=== PATIENT | male | born 1935 | race Caucasian/White ===

== ENCOUNTER 2021-03-02 22:35 | Inpatient (IN) | payer OTHER ==
[2021-03-02 23:23] LABS: ARTERIAL BLD GAS O2 SATURATION 39.1 % (95-98); ARTERIAL BLOOD GAS BASE EXCESS -2.4 mmol/L (-2-2); ARTERIAL BLOOD GAS pH 7.362 (7.350-7.450)
[2021-03-02 23:25] LABS: ALLENS TEST POSITIVE
[2021-03-02 23:28] LABS: ARTERIAL BLOOD GAS PO2 23.4 mmHg (80-100)
[2021-03-03] MEDS ORDERED: AZITHROMYCIN IVPB 500 MG in DEXTROSE 5%-WATER - 250 ML IVPB ONE (00:10)
[2021-03-03] MEDS ORDERED: CEFTRIAXONE 1 GM in DEXTROSE 5%-WATER - 100 ML IVPB ONE (00:10)
[2021-03-03 00:20] LABS: BASO % 0.1 % (0-2.0); EOS % 0.7 % (0-4.5); HEMATOCRIT 27.9 % (35.4-49); HEMOGLOBIN 9.1 GM/dL (11.7-16.9); LYMPH % 15.1 % (8-40); MCHC 32.6 g/dl (32.0-35.9); MEAN CELL VOLUME 98.1 fl (80-96); MEAN PLT VOLUME 8.9 fl (7.5-11.1); MONO % 9.3 % (3.8-10.2); NEUT % 74.8 % (42.8-82.8); PLATELET COUNT 267 10^3/uL (134-434); RBC 2.84 M/mm3 (4.00-5.60); RDW 13.7 % (11.9-15.9); WHITE BLOOD COUNT 12.8 K/mm3 (4.0-10.0)
[2021-03-03] MEDS ORDERED: AZITHROMYCIN IVPB 500 MG/250 ML BAG IVPB ONE (00:23)
[2021-03-03] MEDS ORDERED: CEFTRIAXONE 1 GM/50 ML BAG ONE (00:23)
[2021-03-03 00:26] LABS: ALBUMIN 2.2 g/dl (3.4-5.0); CALCIUM 7.8 mg/dL (8.5-10.1)
[2021-03-03 00:27] LABS: BLOOD UREA NITROGEN 54.6 mg/dL (7-18); MAGNESIUM 2.5 mg/dL (1.8-2.4)
[2021-03-03 00:29] LABS: CREATININE 1.4 mg/dL (0.55-1.3); PROTHROMBIN TIME (PATIENT) 11.7 SEC (9.7-13.0)
[2021-03-03 00:30] LABS: PHOSPHOROUS 3.5 mg/dL (2.5-4.9)
[2021-03-03 00:31] LABS: BILIRUBIN,TOTAL 0.4 mg/dL (0.2-1); TOT PROT 5.4 g/dl (6.4-8.2)
[2021-03-03 00:32] LABS: ACTIVATED PTT 24.2 SECONDS (25.2-36.5)
[2021-03-03 00:35] LABS: N-TERMINAL BNP 765.1 pg/ml (5-450)
[2021-03-03 00:39] LABS: URINE APPEARANCE CLEAR; URINE BILIRUBIN NEGATIVE (NEGATIVE); URINE COLOR YELLOW; URINE GLUCOSE (UA) NEGATIVE (NEGATIVE); URINE KETONE NEGATIVE (NEGATIVE); URINE LEUK ESTERASE NEGATIVE (NEGATIVE); URINE NITRITE NEGATIVE (NEGATIVE); URINE PROTEIN NEGATIVE (NEGATIVE)
[2021-03-03] MEDS ORDERED: HALOPERIDOL LACTATE 5 MG/ML ONE (01:40)
[2021-03-03] MEDS ORDERED: HALOPERIDOL DECANOATE 500 MG/5ML MDV IM ONE (01:40)
[2021-03-03] MEDS ORDERED: MIDAZOLAM HCL 2 MG/2 ML SINGLE DOSE VIAL IVPUSH ONE (01:44)
[2021-03-03] MEDS ORDERED: MIDAZOLAM HCL 2 MG/2 ML SINGLE DOSE VIAL ONE (01:46)
[2021-03-03] MEDS ORDERED: ALBUTEROL SO4 2.5/IPRATROPIUM 0.5 INH SOL 3 ML VIAL.NEB. NEB PRN (03:35)
[2021-03-03] MEDS ORDERED: PIPERACILLIN/TAZOB 3.375 GM 3.375 GM/50 ML BAG IVPB SCH (10:00)
[2021-03-03] MEDS ORDERED: PIPERACILLIN/TAZOB 3.375 GM 3.375 GM in DEXTROSE 5%-WATER - 50 ML IVPB SCH (10:00)
[2021-03-03 12:06] LABS: BASO % 1.1 % (0-2.0); EOS % 2.6 % (0-4.5); HEMATOCRIT 25.4 % (35.4-49); HEMOGLOBIN 8.6 GM/dL (11.7-16.9); LYMPH % 16.8 % (8-40); MCH 32.2 pg (25.7-33.7); MCHC 33.7 g/dl (32.0-35.9); MEAN CELL VOLUME 95.5 fl (80-96); MEAN PLT VOLUME 8.2 fl (7.5-11.1); MONO % 8.6 % (3.8-10.2); NEUT % 70.9 % (42.8-82.8); PLATELET COUNT 254 10^3/uL (134-434); RBC 2.66 M/mm3 (4.00-5.60); RDW 13.8 % (11.9-15.9); WHITE BLOOD COUNT 9.4 K/mm3 (4.0-10.0)
[2021-03-03 12:27] LABS: CALCIUM 7.9 mg/dL (8.5-10.1)
[2021-03-03 12:28] LABS: BLOOD UREA NITROGEN 43.6 mg/dL (7-18)
[2021-03-03 12:30] LABS: CREATININE 1.1 mg/dL (0.55-1.3)
[2021-03-03 12:32] LABS: BILIRUBIN,TOTAL 0.3 mg/dL (0.2-1); TOT PROT 4.8 g/dl (6.4-8.2)
[2021-03-03] MEDS ORDERED: PIPERACILLIN/TAZOB 3.375 GM 3.375 GM/50 ML BAG IVPB ONE (19:22)
[2021-03-03] MEDS: PIPERACILLIN/TAZOB 3.375 GM 3.375 GM in DEXTROSE 5%-WATER - 50 ML IVPB SCH (19:24)
[2021-03-04] MEDS: PIPERACILLIN/TAZOB 3.375 GM 3.375 GM in DEXTROSE 5%-WATER - 50 ML IVPB SCH ×3 (02:40→18:25)
[2021-03-04] MEDS ORDERED: PIPERACILLIN/TAZOB 3.375 GM 3.375 GM/50 ML BAG IVPB ONE (02:44)
[2021-03-04 09:51] LABS: BASO % 0.4 % (0-2.0); EOS % 1.5 % (0-4.5); HEMATOCRIT 28.2 % (35.4-49); HEMOGLOBIN 9.4 GM/dL (11.7-16.9); LYMPH % 11.9 % (8-40); MCH 32.8 pg (25.7-33.7); MCHC 33.2 g/dl (32.0-35.9); MEAN CELL VOLUME 98.8 fl (80-96); MONO % 6.4 % (3.8-10.2); NEUT % 79.8 % (42.8-82.8); PLATELET COUNT 306 10^3/uL (134-434); RBC 2.85 M/mm3 (4.00-5.60); RDW 13.7 % (11.9-15.9); WHITE BLOOD COUNT 10.8 K/mm3 (4.0-10.0)
[2021-03-04] MEDS ORDERED: PIPERACILLIN/TAZOBACTAM 3.375 GM VIAL IVPB ONE ×3 (09:57→17:30)
[2021-03-04] MEDS ORDERED: DEXTROSE 5%-WATER - 50 ML IVPB ONE ×3 (09:57→17:30)
[2021-03-04 10:07] LABS: BLOOD UREA NITROGEN 39.2 mg/dL (7-18)
[2021-03-04] MEDS: D5-1/2NS+10 MEQ KCL - 10 MEQ/1,000 ML INFUS.BAG IV SCH (10:07)
[2021-03-04 10:12] LABS: BILIRUBIN,TOTAL 0.5 mg/dL (0.2-1)
[2021-03-05] MEDS ORDERED: PIPERACILLIN/TAZOBACTAM 3.375 GM VIAL IVPB ONE ×3 (00:52→16:45)
[2021-03-05] MEDS ORDERED: DEXTROSE 5%-WATER - 50 ML IVPB ONE ×3 (00:53→16:45)
[2021-03-05] MEDS: PIPERACILLIN/TAZOB 3.375 GM 3.375 GM in DEXTROSE 5%-WATER - 50 ML IVPB SCH ×3 (01:52→17:22)
[2021-03-05] MEDS: D5-1/2NS+10 MEQ KCL - 10 MEQ/1,000 ML INFUS.BAG IV SCH ×3 (04:33→20:48)
[2021-03-05 09:02] LABS: BASO % 0.3 % (0-2.0); EOS % 2.2 % (0-4.5); HEMOGLOBIN 9.2 GM/dL (11.7-16.9); LYMPH % 15.5 % (8-40); MCH 33.1 pg (25.7-33.7); MEAN CELL VOLUME 97.2 fl (80-96); MEAN PLT VOLUME 8.4 fl (7.5-11.1); MONO % 8.1 % (3.8-10.2); NEUT % 73.9 % (42.8-82.8); PLATELET COUNT 281 10^3/uL (134-434); RBC 2.78 M/mm3 (4.00-5.60); RDW 13.7 % (11.9-15.9)
[2021-03-05 09:29] LABS: BLOOD UREA NITROGEN 26.1 mg/dL (7-18); CALCIUM 7.8 mg/dL (8.5-10.1); MAGNESIUM 2.4 mg/dL (1.8-2.4)
[2021-03-05 09:33] LABS: CREATININE 1.2 mg/dL (0.55-1.3); PHOSPHOROUS 2.5 mg/dL (2.5-4.9)
[2021-03-05] MEDS ORDERED: VANCOMYCIN 1 GRAM (PRE-DOCKED) 1,000 MG/250 ML BAG IVPB ONE (10:30)
[2021-03-06] MEDS ORDERED: DEXTROSE 5%-WATER - 50 ML IVPB ONE ×3 (00:59→17:33)
[2021-03-06] MEDS ORDERED: PIPERACILLIN/TAZOBACTAM 3.375 GM VIAL IVPB ONE ×3 (00:59→17:33)
[2021-03-06] MEDS: PIPERACILLIN/TAZOB 3.375 GM 3.375 GM in DEXTROSE 5%-WATER - 50 ML IVPB SCH ×3 (01:33→17:35)
[2021-03-06 10:45] LABS: BLOOD UREA NITROGEN 17.6 mg/dL (7-18); CALCIUM 7.9 mg/dL (8.5-10.1)
[2021-03-06 10:48] LABS: CREATININE 1.1 mg/dL (0.55-1.3)
[2021-03-06] MEDS: D5-1/2NS+10 MEQ KCL - 10 MEQ/1,000 ML INFUS.BAG IV SCH (15:03)
[2021-03-07] MEDS ORDERED: DEXTROSE 5%-WATER - 50 ML IVPB ONE ×2 (01:20→09:45)
[2021-03-07] MEDS ORDERED: PIPERACILLIN/TAZOBACTAM 3.375 GM VIAL IVPB ONE ×2 (01:20→09:45)
[2021-03-07] MEDS: PIPERACILLIN/TAZOB 3.375 GM 3.375 GM in DEXTROSE 5%-WATER - 50 ML IVPB SCH ×2 (02:11→10:09)
[2021-03-07] MEDS: D5-1/2NS+10 MEQ KCL - 10 MEQ/1,000 ML INFUS.BAG IV SCH (11:00)
[2021-03-07] MEDS: FUROSEMIDE 20 MG TABLET (FP) PO SCH (15:57)
[2021-03-07] MEDS: AMOX TR/POT CLAV 500MG/125MG TABLETS (FP) PO SCH (16:51)
[2021-03-08] MEDS: FUROSEMIDE 20 MG TABLET (FP) PO SCH (08:59)
[2021-03-08] MEDS: AMOX TR/POT CLAV 500MG/125MG TABLETS (FP) PO SCH ×2 (08:59→17:49)
[2021-03-08 10:01] LABS: CALCIUM 8.1 mg/dL (8.5-10.1)
[2021-03-08 10:02] LABS: BLOOD UREA NITROGEN 20.8 mg/dL (7-18)
[2021-03-08 10:05] LABS: CREATININE 1.1 mg/dL (0.55-1.3)
[2021-03-08 20:42] VITALS: BMI 16.6
[2021-03-09 09:35] LABS: BASO % 0.3 % (0-2.0); HEMATOCRIT 27.3 % (35.4-49); HEMOGLOBIN 9.1 GM/dL (11.7-16.9); LYMPH % 13.9 % (8-40); MCH 32.5 pg (25.7-33.7); MCHC 33.3 g/dl (32.0-35.9); MEAN CELL VOLUME 97.6 fl (80-96); MEAN PLT VOLUME 8.9 fl (7.5-11.1); MONO % 8.8 % (3.8-10.2); PLATELET COUNT 298 10^3/uL (134-434); RBC 2.79 M/mm3 (4.00-5.60); WHITE BLOOD COUNT 11.8 K/mm3 (4.0-10.0)
[2021-03-09] MEDS ORDERED: MULTIVITAMINS (DAILY MVI) TABLET (FP) PO SCH (10:00)
[2021-03-09 10:07] LABS: CALCIUM 7.6 mg/dL (8.5-10.1)
[2021-03-09 10:08] LABS: ALBUMIN 1.7 g/dl (3.4-5.0); BLOOD UREA NITROGEN 24.6 mg/dL (7-18)
[2021-03-09 10:11] LABS: CREATININE 1.1 mg/dL (0.55-1.3)
[2021-03-09 10:12] LABS: BILIRUBIN,TOTAL 0.4 mg/dL (0.2-1)
[2021-03-09 10:13] LABS: TOT PROT 4.8 g/dl (6.4-8.2)
[2021-03-09] MEDS: FUROSEMIDE 20 MG TABLET (FP) PO SCH (10:34)
[2021-03-09] MEDS: MULTIVITAMINS (DAILY MVI) TABLET (FP) PO SCH (10:34)
[2021-03-09] MEDS: AMOX TR/POT CLAV 500MG/125MG TABLETS (FP) PO SCH ×2 (10:34→17:43)
[2021-03-10] MEDS: AMOX TR/POT CLAV 500MG/125MG TABLETS (FP) PO SCH (09:00)
[2021-03-10] MEDS: MULTIVITAMINS (DAILY MVI) TABLET (FP) PO SCH (09:07)
[2021-03-10 14:06] LABS: BASO % 0.4 % (0-2.0); EOS % 0.9 % (0-4.5); HEMATOCRIT 30.6 % (35.4-49); HEMOGLOBIN 10.3 GM/dL (11.7-16.9); LYMPH % 13.3 % (8-40); MCH 32.9 pg (25.7-33.7); MCHC 33.7 g/dl (32.0-35.9); MEAN CELL VOLUME 97.6 fl (80-96); MEAN PLT VOLUME 8.6 fl (7.5-11.1); MONO % 7.6 % (3.8-10.2); NEUT % 77.8 % (42.8-82.8); PLATELET COUNT 337 10^3/uL (134-434); RBC 3.14 M/mm3 (4.00-5.60); RDW 13.8 % (11.9-15.9); WHITE BLOOD COUNT 9.9 K/mm3 (4.0-10.0)
[2021-03-10 14:33] LABS: ALBUMIN 1.9 g/dl (3.4-5.0); BLOOD UREA NITROGEN 30.4 mg/dL (7-18)
[2021-03-10 14:36] LABS: CREATININE 1.1 mg/dL (0.55-1.3)
[2021-03-10 14:38] LABS: TOT PROT 5.3 g/dl (6.4-8.2)
[2021-03-10 14:44] LABS: BILIRUBIN,TOTAL 0.3 mg/dL (0.2-1)
[2021-03-11 13:03] LABS: BASO % 0.6 % (0-2.0); EOS % 1.5 % (0-4.5); HEMATOCRIT 29.3 % (35.4-49); HEMOGLOBIN 9.9 GM/dL (11.7-16.9); LYMPH % 12.6 % (8-40); MCH 33.3 pg (25.7-33.7); MCHC 33.7 g/dl (32.0-35.9); MEAN CELL VOLUME 98.8 fl (80-96); MEAN PLT VOLUME 8.4 fl (7.5-11.1); MONO % 7.4 % (3.8-10.2); NEUT % 77.9 % (42.8-82.8); PLATELET COUNT 335 10^3/uL (134-434); RBC 2.97 M/mm3 (4.00-5.60); WHITE BLOOD COUNT 7.9 K/mm3 (4.0-10.0)
[2021-03-11] MEDS: MULTIVITAMINS (DAILY MVI) TABLET (FP) PO SCH (15:38)
[2021-03-12 15:41] VITALS: BP 120/60; PULSE 53; TEMP 97.4
[2021-03-12] MEDS: MULTIVITAMINS (DAILY MVI) TABLET (FP) PO SCH (16:29)
== END 2021-03-12 16:49 | DRG 871 ==
LOC: JER 22:35 → JERBED 23:46 → J5S 03-04 04:43
PROVIDERS: ADMIT Internal Medicine; ATTEND Family Medicine
DX: A41.9 Sepsis, unspecified organism (principal); J96.01 Acute respiratory failure with hypoxia; J18.9 Pneumonia, unspecified organism; E43 Unspecified severe protein-calorie malnutrition; J44.1 Chronic obstructive pulmonary disease with (acute) exacerbation; N17.9 Acute kidney failure, unspecified; J44.0 Chronic obstructive pulmonary disease with (acute) lower respiratory infection; N39.0 Urinary tract infection, site not specified; R64 Cachexia; Z68.1 Body mass index [BMI] 19.9 or less, adult; E83.51 Hypocalcemia; D72.829 Elevated white blood cell count, unspecified; F03.90 Unspecified dementia, unspecified severity, without behavioral disturbance, psychotic disturbance, mood disturbance, and anxiety; N28.1 Cyst of kidney, acquired
CPT/HCPCS: 36415; 36600; 70450-TC; 71045-TC-FY; 76775-TC; 76856-TC; 80048; 80053; 81003; 82140; 82272; 82550; 82553; 82728; 82803; 82962; 83540; 83550; 83605; 83735; 83880; 84100; 84484; 85025; 85610; 85730; 86850; 86900; 86901; 87040; 87076; 87086; 87186; 87899; 93005; 93010; 97116-GP; 97162-GP; 99285-25; C9803; U0003; U0005

== ENCOUNTER 2021-05-29 18:36 | Inpatient (IN) | payer OTHER ==
[2021-05-29 19:23] VITALS: BMI 14.2
[2021-05-29 22:36] LABS: EOS % 0.2 % (0-4.5); HEMATOCRIT 31.1 % (35.4-49); HEMOGLOBIN 9.6 GM/dL (11.7-16.9); LYMPH % 6.4 % (8-40); MCH 28.5 pg (25.7-33.7); MCHC 30.7 g/dl (32.0-35.9); MEAN CELL VOLUME 92.9 fl (80-96); MEAN PLT VOLUME 9.4 fl (7.5-11.1); MONO % 3.3 % (3.8-10.2); NEUT % 90.1 % (42.8-82.8); PLATELET COUNT 268 10^3/uL (134-434); RBC 3.35 M/mm3 (4.00-5.60); RDW 17.7 % (11.9-15.9); WHITE BLOOD COUNT 26.1 K/mm3 (4.0-10.0)
[2021-05-29 23:00] LABS: CHLORIDE 140 mmol/L (98-107)
[2021-05-29 23:02] LABS: ALBUMIN 1.9 g/dl (3.4-5.0); CALCIUM 8.1 mg/dL (8.5-10.1); CO2 26 mmol/L (21-32); GLUCOSE,RANDOM 90 mg/dL (74-106); MAGNESIUM 2.8 mg/dL (1.8-2.4)
[2021-05-29 23:05] LABS: CREATININE 1.9 mg/dL (0.55-1.3); SGOT/AST 91 U/L (15-37); SGPT/ALT 33 U/L (13-61)
[2021-05-29 23:07] LABS: BILIRUBIN,TOTAL 0.4 mg/dL (0.2-1)
[2021-05-29 23:08] LABS: ALK PHOS 123 U/L (45-117)
[2021-05-29 23:09] LABS: EPI CELLS 31 /uL (0-25.1); HYALINE CASTS 3 /uL (0-3.1); URINE APPEARANCE TURBID; URINE BACTERIA 1198 /uL (0-1359); URINE BILIRUBIN NEGATIVE (NEGATIVE); URINE COLOR YELLOW; URINE GLUCOSE (UA) NEGATIVE (NEGATIVE); URINE KETONE NEGATIVE (NEGATIVE); URINE LEUK ESTERASE 3+ (NEGATIVE); URINE NITRITE NEGATIVE (NEGATIVE); URINE PROTEIN 1+ (NEGATIVE); URINE RBC 186 /uL (0-23.9); URINE UROBILINOGEN 0.2 mg/dL (0.2-1.0); URINE WBC 1899 /uL (0-25.8)
[2021-05-29 23:10] LABS: N-TERMINAL BNP 720.7 pg/ml (5-450)
[2021-05-29] MEDS ORDERED: VANCOMYCIN 1 GM in D5W (PRE-DOCKED) 1,000 MG/250 ML IVPB ONE (23:18)
[2021-05-29] MEDS ORDERED: PIPERACILLIN/TAZOB 2.25 GM 2.25 GM in DEXTROSE 5%-WATER - 50 ML IVPB ONE (23:21)
[2021-05-29] MEDS ORDERED: VANCOMYCIN 1 GRAM (PRE-DOCKED) 1,000 MG/250 ML BAG IVPB ONE (23:27)
[2021-05-29] MEDS ORDERED: PIPERACILLIN/TAZOB 2.25 GM 2.25 GM/50 ML BAG IVPB ONE (23:27)
[2021-05-29 23:39] LABS: ANION GAP 3 MMOL/L (8-16); SODIUM 169 mmol/L (136-145)
[2021-05-29 23:46] LABS: INR 1.12 (0.83-1.09); PROTHROMBIN TIME (PATIENT) 12.9 SEC (9.7-13.0)
[2021-05-29] MEDS ORDERED: SODIUM CHLORIDE 1,000 ML IV STA (23:54)
[2021-05-30 00:09] LABS: ANISOCYTOSIS 1+; MACROCYTOSIS 0; OVALOCYTE 1+; PLATELET ESTIMATE NORMAL
[2021-05-30] MEDS ORDERED: ACETAMINOPHEN 1000 MG/100 ML BAG IVPB PRN (02:51)
[2021-05-30] MEDS ORDERED: ALBUTEROL SO4 2.5/IPRATROPIUM 0.5 INH SOL 3 ML VIAL.NEB. NEB PRN (06:43)
[2021-05-30 07:23] LABS: HEMATOCRIT 30.8 % (35.4-49); HEMOGLOBIN 9.1 GM/dL (11.7-16.9); MCH 28.4 pg (25.7-33.7); MCHC 29.5 g/dl (32.0-35.9); MEAN CELL VOLUME 96.2 fl (80-96); MEAN PLT VOLUME 9.8 fl (7.5-11.1); PLATELET COUNT 264 10^3/uL (134-434); RBC 3.21 M/mm3 (4.00-5.60); RDW 17.7 % (11.9-15.9)
[2021-05-30 07:32] LABS: CHLORIDE 141 mmol/L (98-107)
[2021-05-30 07:35] LABS: BLOOD UREA NITROGEN 68.1 mg/dL (7-18)
[2021-05-30 07:37] LABS: CO2 25 mmol/L (21-32)
[2021-05-30 07:38] LABS: ALBUMIN 1.8 g/dl (3.4-5.0); GLUCOSE,RANDOM 89 mg/dL (74-106); TRIGLYCERIDES 103 mg/dL (0-150)
[2021-05-30 07:39] LABS: CALCIUM 8.1 mg/dL (8.5-10.1)
[2021-05-30 07:40] LABS: SGOT/AST 86 U/L (15-37); SGPT/ALT 32 U/L (13-61)
[2021-05-30 07:41] LABS: CHOLESTEROL 87 mg/dL (50-200); CREATININE 1.8 mg/dL (0.55-1.3)
[2021-05-30 07:42] LABS: LDL CHOLESTEROL (ONLY SJRH) 42 mg/dL (5-100)
[2021-05-30 07:43] LABS: HDL CHOLESTEROL 28 mg/dL (40-60)
[2021-05-30 07:44] LABS: BILIRUBIN,TOTAL 0.4 mg/dL (0.2-1); TOT PROT 5.7 g/dl (6.4-8.2)
[2021-05-30 07:46] LABS: ALK PHOS 113 U/L (45-117)
[2021-05-30 07:51] LABS: ANION GAP 3 MMOL/L (8-16); SODIUM 169 mmol/L (136-145)
[2021-05-30] MEDS ORDERED: PIPERACILLIN/TAZOBACTAM 2.25 GM VIAL IVPB ONE ×2 (07:58→17:08)
[2021-05-30] MEDS ORDERED: DEXTROSE 5%-WATER - 50 ML IVPB ONE ×2 (07:58→17:08)
[2021-05-30] MEDS ORDERED: VANCOMYCIN 500 MG VIAL (RESTRICTED TO ID ONLY) ONE (07:59)
[2021-05-30] MEDS ORDERED: DEXTROSE 5%-WATER 100 ML IVPB ONE (07:59)
[2021-05-30] MEDS ORDERED: VANCOMYCIN 500 MG in DEXTROSE 5%-WATER 100 ML IVPB SCH (08:00)
[2021-05-30 09:00] LABS: ANISOCYTOSIS 1+; MACROCYTOSIS 1+; OVALOCYTE 1+; PLATELET ESTIMATE NORMAL; TARGET CELLS 1+
[2021-05-30] MEDS ORDERED: PIPERACILLIN/TAZOB 2.25 GM 2.25 GM in DEXTROSE 5%-WATER - 50 ML IVPB SCH (09:00)
[2021-05-30] MEDS: HEPARIN NA (PORCINE) 5,000 UNITS/ML 1ML VIAL SQ SCH ×2 (09:12→21:25)
[2021-05-30] MEDS: DEXTROSE 5%-WATER - 1,000 ML IV SCH (13:00)
[2021-05-30] MEDS: PIPERACILLIN/TAZOB 2.25 GM 2.25 GM in DEXTROSE 5%-WATER - 50 ML IVPB SCH (17:18)
[2021-05-31] MEDS ORDERED: VANCOMYCIN 500 MG in DEXTROSE 5%-WATER - 100 ML IVPB SCH (01:00)
[2021-05-31] MEDS ORDERED: PIPERACILLIN/TAZOBACTAM 2.25 GM VIAL IVPB ONE ×3 (01:01→16:23)
[2021-05-31] MEDS ORDERED: DEXTROSE 5%-WATER - 50 ML IVPB ONE ×3 (01:01→16:23)
[2021-05-31] MEDS: PIPERACILLIN/TAZOB 2.25 GM 2.25 GM in DEXTROSE 5%-WATER - 50 ML IVPB SCH ×3 (01:33→17:01)
[2021-05-31] MEDS: DEXTROSE 5%-WATER - 1,000 ML IV SCH ×3 (01:33→14:37)
[2021-05-31 08:50] LABS: HEMATOCRIT 29.7 % (35.4-49); HEMOGLOBIN 8.8 GM/dL (11.7-16.9); MCH 28.2 pg (25.7-33.7); MCHC 29.8 g/dl (32.0-35.9); MEAN CELL VOLUME 94.9 fl (80-96); MEAN PLT VOLUME 9.8 fl (7.5-11.1); PLATELET COUNT 227 10^3/uL (134-434); RBC 3.12 M/mm3 (4.00-5.60); RDW 18.2 % (11.9-15.9); WHITE BLOOD COUNT 22.6 K/mm3 (4.0-10.0)
[2021-05-31 09:10] LABS: CHLORIDE 135 mmol/L (98-107)
[2021-05-31 09:13] LABS: CALCIUM 8.2 mg/dL (8.5-10.1)
[2021-05-31 09:14] LABS: BLOOD UREA NITROGEN 60.7 mg/dL (7-18); CO2 25 mmol/L (21-32); GLUCOSE,RANDOM 89 mg/dL (74-106)
[2021-05-31 09:17] LABS: CREATININE 1.7 mg/dL (0.55-1.3)
[2021-05-31] MEDS: HEPARIN NA (PORCINE) 5,000 UNITS/ML 1ML VIAL SQ SCH ×2 (09:17→21:48)
[2021-05-31 09:59] LABS: ANION GAP 4 MMOL/L (8-16); SODIUM 164 mmol/L (136-145)
[2021-05-31 11:41] LABS: ANISOCYTOSIS 0; HELMET CELLS 0; HOWELL-JOLLY BODIES 0; MACROCYTOSIS 0; OVALOCYTE 0; PLATELET ESTIMATE NORMAL; ROULEAU 0; SICKELED CELLS 0; TARGET CELLS 0; TEAR DROP CELLS 0; TOXIC GRANULATION 0
[2021-06-01] MEDS ORDERED: PIPERACILLIN/TAZOBACTAM 2.25 GM VIAL IVPB ONE ×3 (01:37→17:22)
[2021-06-01] MEDS ORDERED: DEXTROSE 5%-WATER - 50 ML IVPB ONE ×3 (01:38→17:22)
[2021-06-01] MEDS: DEXTROSE 5%-WATER - 1,000 ML IV SCH ×2 (02:04→10:00)
[2021-06-01] MEDS: PIPERACILLIN/TAZOB 2.25 GM 2.25 GM in DEXTROSE 5%-WATER - 50 ML IVPB SCH ×3 (02:04→17:46)
[2021-06-01 08:14] LABS: BASO % 0.2 % (0-2.0); EOS % 1.7 % (0-4.5); HEMATOCRIT 27.4 % (35.4-49); HEMOGLOBIN 8.3 GM/dL (11.7-16.9); LYMPH % 10.2 % (8-40); MCHC 30.2 g/dl (32.0-35.9); MEAN PLT VOLUME 9.9 fl (7.5-11.1); NEUT % 83.9 % (42.8-82.8); PLATELET COUNT 194 10^3/uL (134-434); RBC 2.95 M/mm3 (4.00-5.60); RDW 17.1 % (11.9-15.9); WHITE BLOOD COUNT 13.9 K/mm3 (4.0-10.0)
[2021-06-01 08:24] LABS: BLOOD UREA NITROGEN 49.9 mg/dL (7-18); CALCIUM 8.1 mg/dL (8.5-10.1)
[2021-06-01 08:28] LABS: CREATININE 1.4 mg/dL (0.55-1.3)
[2021-06-01] MEDS: HEPARIN NA (PORCINE) 5,000 UNITS/ML 1ML VIAL SQ SCH ×2 (10:00→22:21)
[2021-06-02] MEDS ORDERED: PIPERACILLIN/TAZOBACTAM 2.25 GM VIAL IVPB ONE ×3 (01:17→18:05)
[2021-06-02] MEDS ORDERED: DEXTROSE 5%-WATER - 50 ML IVPB ONE ×3 (01:17→18:05)
[2021-06-02] MEDS: PIPERACILLIN/TAZOB 2.25 GM 2.25 GM in DEXTROSE 5%-WATER - 50 ML IVPB SCH ×3 (01:24→18:20)
[2021-06-02] MEDS: DEXTROSE 5%-WATER - 1,000 ML IV SCH (04:52)
[2021-06-02 08:50] LABS: BASO % 0.1 % (0-2.0); HEMATOCRIT 23.3 % (35.4-49); HEMOGLOBIN 7.3 GM/dL (11.7-16.9); LYMPH % 11.4 % (8-40); MCH 28.8 pg (25.7-33.7); MCHC 31.5 g/dl (32.0-35.9); MEAN CELL VOLUME 91.4 fl (80-96); MEAN PLT VOLUME 9.8 fl (7.5-11.1); MONO % 4.5 % (3.8-10.2); PLATELET COUNT 169 10^3/uL (134-434); RBC 2.55 M/mm3 (4.00-5.60); RDW 17.3 % (11.9-15.9); WHITE BLOOD COUNT 11.6 K/mm3 (4.0-10.0)
[2021-06-02 09:06] LABS: BLOOD UREA NITROGEN 36.3 mg/dL (7-18); CALCIUM 7.7 mg/dL (8.5-10.1); MAGNESIUM 2.1 mg/dL (1.8-2.4)
[2021-06-02 09:09] LABS: CREATININE 1.2 mg/dL (0.55-1.3)
[2021-06-02] MEDS: D5-1/2NS+30 MEQ KCL - 30 MEQ/1,000 ML INFUS.BAG IV SCH (09:40)
[2021-06-02] MEDS: HEPARIN NA (PORCINE) 5,000 UNITS/ML 1ML VIAL SQ SCH ×2 (09:40→22:41)
[2021-06-02] MEDS: KCL 10 MEQ IVPB 10 MEQ/100 ML INFUS.BAG IVPB SCH ×3 (10:40→13:36)
[2021-06-02] MEDS ORDERED: ACETAMINOPHEN 1000 MG/100 ML BAG IVPB PRN (15:35)
[2021-06-02] MEDS ORDERED: ALBUTEROL SO4 2.5/IPRATROPIUM 0.5 INH SOL 3 ML VIAL.NEB. NEB PRN (15:35)
[2021-06-03] MEDS ORDERED: DEXTROSE 5%-WATER - 50 ML IVPB ONE ×3 (01:54→18:36)
[2021-06-03] MEDS ORDERED: PIPERACILLIN/TAZOBACTAM 2.25 GM VIAL IVPB ONE ×3 (01:54→18:36)
[2021-06-03] MEDS: PIPERACILLIN/TAZOB 2.25 GM 2.25 GM in DEXTROSE 5%-WATER - 50 ML IVPB SCH ×3 (02:05→18:47)
[2021-06-03] MEDS ORDERED: LORazepam 2 MG/ML SDV VIAL IVPB PRN (08:20)
[2021-06-03] MEDS: D5-1/2NS+30 MEQ KCL - 30 MEQ/1,000 ML INFUS.BAG IV SCH (09:40)
[2021-06-03] MEDS: HEPARIN NA (PORCINE) 5,000 UNITS/ML 1ML VIAL SQ SCH ×2 (10:16→21:33)
[2021-06-04] MEDS ORDERED: DEXTROSE 5%-WATER - 50 ML IVPB ONE ×3 (02:12→17:20)
[2021-06-04] MEDS ORDERED: PIPERACILLIN/TAZOBACTAM 2.25 GM VIAL IVPB ONE ×3 (02:12→17:20)
[2021-06-04] MEDS: PIPERACILLIN/TAZOB 2.25 GM 2.25 GM in DEXTROSE 5%-WATER - 50 ML IVPB SCH ×3 (02:20→17:38)
[2021-06-04] MEDS: HEPARIN NA (PORCINE) 5,000 UNITS/ML 1ML VIAL SQ SCH ×2 (09:50→21:27)
[2021-06-04] MEDS: D5-1/2NS+30 MEQ KCL - 30 MEQ/1,000 ML INFUS.BAG IV SCH ×2 (09:51→12:51)
[2021-06-05] MEDS ORDERED: PIPERACILLIN/TAZOBACTAM 2.25 GM VIAL IVPB ONE ×3 (01:45→16:54)
[2021-06-05] MEDS ORDERED: DEXTROSE 5%-WATER - 50 ML IVPB ONE ×3 (01:45→16:54)
[2021-06-05] MEDS: PIPERACILLIN/TAZOB 2.25 GM 2.25 GM in DEXTROSE 5%-WATER - 50 ML IVPB SCH ×3 (02:16→17:09)
[2021-06-05] MEDS: D5-1/2NS+30 MEQ KCL - 30 MEQ/1,000 ML INFUS.BAG IV SCH ×3 (02:19→17:08)
[2021-06-05] MEDS: HEPARIN NA (PORCINE) 5,000 UNITS/ML 1ML VIAL SQ SCH ×2 (09:30→21:34)
[2021-06-06] MEDS ORDERED: PIPERACILLIN/TAZOBACTAM 2.25 GM VIAL IVPB ONE ×3 (00:59→17:43)
[2021-06-06] MEDS ORDERED: DEXTROSE 5%-WATER - 50 ML IVPB ONE ×3 (01:00→17:43)
[2021-06-06] MEDS: PIPERACILLIN/TAZOB 2.25 GM 2.25 GM in DEXTROSE 5%-WATER - 50 ML IVPB SCH ×3 (01:09→17:54)
[2021-06-06] MEDS: D5-1/2NS+30 MEQ KCL - 30 MEQ/1,000 ML INFUS.BAG IV SCH ×3 (06:18→20:09)
[2021-06-06] MEDS: HEPARIN NA (PORCINE) 5,000 UNITS/ML 1ML VIAL SQ SCH ×2 (10:08→21:14)
[2021-06-07] MEDS ORDERED: PIPERACILLIN/TAZOBACTAM 2.25 GM VIAL IVPB ONE ×3 (01:03→17:12)
[2021-06-07] MEDS ORDERED: DEXTROSE 5%-WATER - 50 ML IVPB ONE ×3 (01:03→17:12)
[2021-06-07] MEDS: PIPERACILLIN/TAZOB 2.25 GM 2.25 GM in DEXTROSE 5%-WATER - 50 ML IVPB SCH ×3 (01:17→17:21)
[2021-06-07] MEDS: D5-1/2NS+30 MEQ KCL - 30 MEQ/1,000 ML INFUS.BAG IV SCH ×2 (10:33→10:43)
[2021-06-07] MEDS: HEPARIN NA (PORCINE) 5,000 UNITS/ML 1ML VIAL SQ SCH ×2 (10:39→21:27)
[2021-06-08] MEDS ORDERED: PIPERACILLIN/TAZOBACTAM 2.25 GM VIAL IVPB ONE ×3 (00:39→17:11)
[2021-06-08] MEDS ORDERED: DEXTROSE 5%-WATER - 50 ML IVPB ONE ×3 (00:39→17:12)
[2021-06-08] MEDS: PIPERACILLIN/TAZOB 2.25 GM 2.25 GM in DEXTROSE 5%-WATER - 50 ML IVPB SCH ×3 (01:25→17:25)
[2021-06-08] MEDS: D5-1/2NS+30 MEQ KCL - 30 MEQ/1,000 ML INFUS.BAG IV SCH ×3 (04:11→17:29)
[2021-06-08] MEDS: HEPARIN NA (PORCINE) 5,000 UNITS/ML 1ML VIAL SQ SCH ×2 (11:06→21:23)
[2021-06-09] MEDS ORDERED: DEXTROSE 5%-WATER - 50 ML IVPB ONE ×3 (01:06→17:43)
[2021-06-09] MEDS ORDERED: PIPERACILLIN/TAZOBACTAM 2.25 GM VIAL IVPB ONE ×3 (01:06→17:43)
[2021-06-09] MEDS: PIPERACILLIN/TAZOB 2.25 GM 2.25 GM in DEXTROSE 5%-WATER - 50 ML IVPB SCH ×2 (02:01→09:54)
[2021-06-09] MEDS: D5-1/2NS+30 MEQ KCL - 30 MEQ/1,000 ML INFUS.BAG IV SCH ×3 (07:19→21:41)
[2021-06-09] MEDS: HEPARIN NA (PORCINE) 5,000 UNITS/ML 1ML VIAL SQ SCH ×2 (09:54→21:41)
[2021-06-10 07:03] VITALS: BP 102/37; PULSE 72; TEMP 98.3
[2021-06-10] MEDS: HEPARIN NA (PORCINE) 5,000 UNITS/ML 1ML VIAL SQ SCH (10:59)
[2021-06-11 10:08] LABS: SARS-CoV-2 NAA Not Detected (Not Detected)
== END 2021-06-10 12:09 | DRG 871 ==
LOC: JER 18:36 → JERBED 20:55 → J4S 05-30 06:34 → J5S 06-02 14:57
PROVIDERS: ADMIT Hospitalist; ATTEND Family Medicine
DX: A41.9 Sepsis, unspecified organism (principal); J96.01 Acute respiratory failure with hypoxia; J69.0 Pneumonitis due to inhalation of food and vomit; J44.0 Chronic obstructive pulmonary disease with (acute) lower respiratory infection; N17.9 Acute kidney failure, unspecified; N39.0 Urinary tract infection, site not specified; J94.8 Other specified pleural conditions; Z68.1 Body mass index [BMI] 19.9 or less, adult; E87.0 Hyperosmolality and hypernatremia; I24.8 Other forms of acute ischemic heart disease; F03.91 Unspecified dementia, unspecified severity, with behavioral disturbance; R64 Cachexia; D64.9 Anemia, unspecified; Z66 Do not resuscitate; R62.7 Adult failure to thrive; E87.6 Hypokalemia; N28.1 Cyst of kidney, acquired; D72.829 Elevated white blood cell count, unspecified; E86.0 Dehydration
CPT/HCPCS: 36415; 71045-TC-FY; 80048; 80053; 80061; 81003; 82550; 82553; 83605; 83735; 83880; 84443; 84484; 85025; 85610; 85730; 87040; 87086; 87186; 87899; 93005; 93010; 99285-25; C9803; J1644; U0003; U0005